=== PATIENT | female | born 1965 | race Caucasian/White ===

== ENCOUNTER 2019-04-12 01:25 | Day surgery (SDC) | payer OTHER, SELFPAY ==
--- NOTE | 2019-04-10 15:01 | WPDANESEPP ---
Anes - Eval Pre Procedure Procedure: Operation Date: 04/12/19 09:30 Proposed Procedures p Esophagogastroduodenoscopy & Colonoscopy - David Duran MD Date/Time: 04/10/19 15:01 Pre Op Diagnosis: Iron Deficiency Anemia Patient Data Age: 54 Gender: F Height: Weight: Allergies Allergy/AdvReac Type Severity Reaction Status Date / Time No Known Allergies Allergy Verified 04/07/19 14:01 Home Medications Medication Instructions Recorded Confirmed Type ywhtxptmrbtc-qbd-colq-FA-vit K 1 tablet PO DAILY 04/07/19 04/07/19 History [Adults Multivitamin] Patient hx anesthesia problems: none Family hx anesthesia problems: none PMFSH Past Medical History Medical History (Updated 04/10/19 @ 15:12 by Kylie Oneill CRNA) Anemia 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 Postmenopausal Surgical History Surgical History (Updated 04/10/19 @ 15:12 by Kylie Oneill CRNA) History of gastric bypass Hx of abdominoplasty Hx of cosmetic surgery 2019: medial thigh lift, lower body lift, midback skin excision 2018: brachioplasty, abdominoplasty, suction lipectomy mons Family History Family History (Updated 08/21/17 @ 08:43 by DOCTOR UNKNOWN) Mother Family history of diabetes mellitus in first degree relative Family history of malignant neoplasm of breast in first degree relative Diabetes mellitus Hypertension Social History Social History (Updated 04/10/19 @ 15:00 by Kylie Oneill CRNA) Smoking status: Former smoker Second hand tobacco smoke exposure: No Smoking end date: 03/03/15 Additional smoking assessment comments: positive cotinine screen 2019 Alcohol intake: never Exam Day of Procedure 04/10/19 15:01
[2019-04-12 08:17] VITALS: BP 96/69; PULSE 63; RESP 16; TEMP 36.7; O2SAT 100
[2019-04-12] MEDS: LACTATED RINGERS 1,000 ML 150 ML IV CONT (08:20)
--- NOTE | 2019-04-12 09:16 | P.CONGI_ITS ---
Assessment and Plan Additional Plan This is a 54-year-old white female patient seen in the evaluation at the request of NASIMA Smith. Patient is referred for evaluation of iron deficiency anemia. She denies any obvious blood loss. She denies abdominal pain. Her bowel habits are normal. Past medical history is significant for gastric bypass in the year 1999. She has required iron supplementation since that time. Additionally she has a history of heavy menses and had uterine ablation in the year 2007. In the past she has required IV vented for iron replacement. She has no stated drug allergies. Medications include only vitamin supplements and iron. Past medical history is significant for obesity, weight loss after gastric bypass. Chronic iron deficiency anemia subsequently. Review of systems she complains of tail bone, coccyx pain. Physical exam reveals her to be alert. Vital signs stable. HEENT exam unr emarkable. Lungs are clear to auscultation and percussion. Heart is without murmur or extra sounds. Abdominal exam bowel sounds are present soft nontender with no organomegaly. Digital external rectal exam normal. Impression 1. Iron deficiency anemia. Plan is for GI endoscopy to exclude GI etiology contributing to this. Most likely related iron malabsorption after previous gastric bypass. 2. History of gastric bypass. Likely contributes to iron malabsorption. Iron intravenous iron may be required. Plan is to proceed with GI endoscopy. Both for screening purposes and to evaluate iron loss. 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 Postmenopausal Surgical History Surgical History (Updated 04/10/19 @ 15:12 by Kylie Oneill CRNA) History of gastric bypass Hx of abdominoplasty Hx of cosmetic surgery 2019: medial thigh lift, lower body lift, midback skin excision 2018: brachioplasty, abdominoplasty, suction lipectomy mons Family History Family History (Updated 08/21/17 @ 08:43 by DOCTOR UNKNOWN) Mother Family history of diabetes mellitus in first degree relative Family history of malignant neoplasm of breast in first degree relative Diabetes mellitus Hypertension Social History Social History (Updated 04/10/19 @ 15:00 by Kylie Oneill, MANUSCRIPTS CURATOR) Smoking status: Former smoker Second hand tobacco smoke exposure: No Smoking end date: 03/03/15 Additional smoking assessment comments: positive cotinine screen 2018 Alcohol intake: never Meds Home Medications and Allergies Home Medications Medication Instructions Recorded Confirmed Type phatewdwkkiy-uit-hdox-FA-vit K 1 tablet PO DAILY 04/07/19 04/07/19 History [Adults Multivitamin] Allergies Allergy/AdvReac Type Severity Reaction Status Date / Time No Known Allergies Allergy Verified 04/07/19 14:01 Vital Signs Vital Signs - 24 hr 04/12/19 08:17 Temperature 36.7 C Pulse Rate 63 Respiratory Rate 16 Blood Pressure 96/69 L Pulse Oximetry 100
--- NOTE | 2019-04-12 09:28 | WPDANESEFPP ---
Anes - Eval Final PreProcedure Day of Procedure 04/12/19 09:28 Patient weight: overweight Heart: regular rate and rhythm Lungs: clear to auscultation Airway: Mallampati scale class II Neurological: alert and oriented Last oral intake: >/= 8 hours ASA classification: II Emergent: no Anesthetic plan: proceed Anesthesia type and monitoring: general GIVS and standard monitoring Informed Consent: The patient's anesthetic plan and its attendant risks and benefits were discussed with the patient/family/POA. Questions were solicited and answers provided to the satisfaction of the patient/family/POA.
[2019-04-12] MEDS: BENZOCAINE (*SP) 60 ML SPRAY CAN (HURRICAINE) 1 SPRAY MUCOUS MEM (09:49)
[2019-04-12 10:12] VITALS: BP 85/50; PULSE 65; RESP 16; O2SAT 98
[2019-04-12 10:22] VITALS: BP 85/50; PULSE 60; RESP 15; O2SAT 100
[2019-04-12 10:32] VITALS: BP 100/63; PULSE 62; RESP 18; O2SAT 100
== END 2019-04-12 10:52 | disposition home or self-care (01) ==
PROVIDERS: PCP Physician Assistant; Visit Provider Internal Medicine Gastroenterology
PROC: 0DJ08ZZ Inspection of Upper Intestinal Tract, Via Natural or Artificial Opening Endoscopic (ICD-10-PCS; CPT 43235; principal; 2019-04-12 09:30)
DX: D50.9 Iron deficiency anemia, unspecified (principal); Z12.11 Encounter for screening for malignant neoplasm of colon; K64.8 Other hemorrhoids; Z98.84 Bariatric surgery status; Z87.891 Personal history of nicotine dependence
CPT/HCPCS: 45378; 43235; J2704; J7120

== ENCOUNTER → 2019-05-06 13:06 | Outpatient (CLI) | payer OTHER, SELFPAY ==
--- NOTE | ~2019-05-06 | MM_ITS ---
EXAMINATION: MM screening zuleima BI w yarely HISTORY: Screening mammogram TECHNIQUE: Craniocaudal and mediolateral oblique 3-D tomosynthesis images were obtained and synthetic 2-D images were generated. CAD analysis was submitted and interpreted. COMPARISON: No prior mammogram is available for comparison at this institution. BREAST PARENCHYMAL COMPOSITION: There are scattered areas of fibroglandular density. FINDINGS: There are benign bilateral axillary and intramammary lymph nodes. There is no evidence of s uspicious mass, calcification, or architectural distortion to suggest malignancy in either breast. Th ere has been no suspicious interval change. IMPRESSION: 1. No mammographic evidence of malignancy. 2. Recommend routine screening mammography in one year. BI-RADS Category 1: Negative Reviewed, dictated and finalized at location A. HEALTH AIDE
--- NOTE | ~2019-05-06 | DEXA_ITS ---
Bone Density Report Name: Rena Kirk Age: 54 Sex: Female Ethnicity: White Date of : 1965 Indication: postmenopausal; screening for osteoporosis; height loss; Referring Provider: Alicia Mandujano Study: Bone densitometry was performed. Exam Date: May 06, 2019 Accession number: [id number] Bone Density: Region BMD T-score Z-score Classification AP Spine (L1-L4) 1.015 -0.3 0.7 Normal Femoral Neck (Left) 0.726 -1.1 -0.1 Osteopenia Total Hip (Left) 0.858 -0.7 0.0 Normal Femoral Neck (Right) 0.696 -1.4 -0.4 Osteopenia Total Hip (Right) 0.798 -1.2 -0.5 Osteopenia Total Hip Mean 0.828 -1.0 -0.3 Normal World Health Organization criteria for BMD impression classify patients as: Normal (T-score at or above -1.0), Osteopenia (T-score between -1.0 and -2.5), or Osteoporosis (T-score at or below -2.5). 10-year Fracture Risk(1): Major Osteoporotic Fracture 6.2% Hip Fracture 0.4% Reported Risk Factors: [place] (), Neck BMD=0.696, BMI=24.7 (1) FRAX(R) Version 3.08. Fracture probability calculated for an untreated patient. Fracture probability may be lower if the patient has received treatment. Clinical Information Provided by Patient: Patient maximum height was 66 Menopause Age: 53 Onset of menses at age 12 Number of children 4 Impression: The patient has low bone mass, based on the Right Femoral Neck T-score. The patient has an estimated ten-year risk of hip fracture of 0.4% and an estimated ten-year risk of major fracture of 6.2%, based on the WHO FRAX algorithm. Discussion: BONE DENSITY IS LOW AT ONE OR MORE SKELETAL SITES. This patient's lowest T-score is low at one or more skeletal sites. It meets the World Health Organization's (WHO) criteria for ?low bone mass? (T-score between -1.0 and -2.5). The patient's 10-year risk of fracture as calculated by FRAX is less than the threshold where pharmacological therapy is recommended by the National Osteoporosis Foundation (NOF). However, all treatment decisions require clinical judgment and consideration of individual patient factors, including patient preferences, comorbidities, previous drug use, risk factors not captured in the FRAX model (e.g., frailty, falls, vitamin D deficiency, increased bone turnover, interval significant decline in bone density) and possible under or overestimation of fracture risk by FRAX. The patient should follow a healthful lifestyle (good nutrition with adequate calcium and vitamin D, and appropriate weight-bearing exercise). Follow-Up: Consider repeating this study in 2 to 3 years to reassess this patient's status, or sooner if there is some new clinical indication. Reported by: DEBI on 05/06/2019 1:52:00 PM. Reviewed, dictated and finalized at lo
== END ==
PROVIDERS: PCP Physician Assistant; Visit Provider Student in an Organized Health Care Education/Training Program
DX: Z12.31 Encounter for screening mammogram for malignant neoplasm of breast (principal); Z78.0 Asymptomatic menopausal state; M85.852 Other specified disorders of bone density and structure, left thigh; M85.851 Other specified disorders of bone density and structure, right thigh
CPT/HCPCS: 77063; 77067; 77080

== ENCOUNTER → 2020-08-04 09:43 | Outpatient (CLI) | payer OTHER, SELFPAY ==
--- NOTE | ~2020-08-04 | CT_ITS ---
EXAMINATION: CT abdomen pelvis w con DATE: 08/04/2020 10:04 INDICATION: Right-sided abdominal pain. TECHNIQUE: Computed tomography (CT) of the abdomen and pelvis was performed with 100 mL Omnipaque-350 intravenous contrast. Automated exposure control and iterative reconstruction technique were employe d. The dose-length product was 799.53 mGy-cm. COMPARISON: None FINDINGS: Lung bases are clear. Heart size is normal. No pericardial or pleural effusion. Postoperative change of prior Travis-en-Y gastric bypass procedure. Multiple small gallstones in the normal-appearing gallbl adder with 2 mm stone in the cystic duct. Normal caliber common bile duct with no intra or extrahepat ic biliary ductal dilation. Liver, spleen, pancreas, bilateral adrenal glands and kidneys are normal. No bowel obstruction or abnormal bowel wall thickening. Appendix is normal. Bladder, uterus and bila teral adnexa are unremarkable. No free intraperitoneal gas or fluid. No pathologically enlarged abdom inal or pelvic lymphadenopathy. A few small fat-containing midline supraumbilical ventral hernias. Mi ld lumbar levocurvature with moderate spondylosis. IMPRESSION: 1. Cholelithiasis with 2 mm stone in the cystic duct but with normal-appearing gallbladder. 2. A few small fat-containing midline supraumbilical ventral hernias. Reviewed, dictated and finalized at location A.
== END ==
PROVIDERS: Visit Provider Physician Assistant
DX: R10.9 Unspecified abdominal pain (principal); K43.9 Ventral hernia without obstruction or gangrene; K80.20 Calculus of gallbladder without cholecystitis without obstruction
CPT/HCPCS: 74177; Q9967

== ENCOUNTER 2023-08-08 08:39 | Outpatient (CLI) | payer OTHER, SELFPAY ==
--- NOTE | ~2023-08-08 | CT_ITS ---
CT of the Abdomen and Pelvis: Indication: Abdominal pain Technique: 2.5 mm axial scans were obtained through the abdomen and pelvis following intravenous adm inistration of 100 cc of Omnipaque 350. Dose reduction technique was used on this scan by utilizing a utomated exposure control and iterative reconstruction technique. The dose-length product (DLP) was 1 029.41 mGy-cm. COMPARISON: 08/04/2020 Findings: Scans through the lung bases are unremarkable. The liver, spleen, pancreas, adrenals and kidneys are within normal limits. Gallbladder absent. No ev idence of aortic aneurysm. No lymphadenopathy. Ventral hernia containing small fat and one wall of a focal segment of the transverse colon. No bowel obstruction or bowel wall thickening seen. Images through the pelvis were performed. Urinary bladder unremarkable. No pelvic mass seen. No ascit es. Impression: No acute abnormality evident. Delacruz's type ventral hernia containing one wall of focal segment of the transverse colon. No bowel obstruction or bowel wall thickening. Reviewed, dictated and finalized at [facility]. Impression: No acute abnormality evident. Delacruz's type ventral hernia containing one wall of focal segment of the trans verse colon. No bowel obstruction or bowel wall thickening.
[2023-08-08 09:06] LABS: Estimated Glomerular Filt Rate > 60
== END 2023-08-08 08:40 ==
LOC: MICIMG 08:40
PROVIDERS: PCP Physician Assistant; Visit Provider Physician Assistant
DX: R10.31 Right lower quadrant pain (principal); K43.9 Ventral hernia without obstruction or gangrene
CPT/HCPCS: 74177; Q9967

== ENCOUNTER 2023-11-17 12:33 | Outpatient (CLI) | payer OTHER, SELFPAY ==
--- NOTE | ~2023-11-17 | MM_ITS ---
EXAMINATION: MM screening zuleima BI w yarely HISTORY: Screening mammogram, family history of breast cancer in her mother. TECHNIQUE: Craniocaudal and mediolateral oblique 3-D tomosynthesis images were obtained and synthetic 2-D images were generated. CAD analysis was submitted and interpreted. COMPARISON: 05/06/2019 BREAST PARENCHYMAL COMPOSITION:Not Dense. The breasts are almost entirely fatty FINDINGS: No suspicious mass, calcification, or architectural distortion are identified in either kody ast to suggest malignancy. There has been no suspicious interval change. IMPRESSION: No mammographic evidence of malignancy. Recommend routine screening mammography in one year. BI-RADS Category 1: Negative Reviewed, dictated and finalized at location .
== END 2023-11-17 12:34 | disposition home or self-care (01) ==
PROVIDERS: PCP Physician Assistant; Visit Provider Physician Assistant
DX: Z12.31 Encounter for screening mammogram for malignant neoplasm of breast (principal)
CPT/HCPCS: 77063; 77067

== ENCOUNTER 2024-01-12 12:28 | Outpatient (CLI) | payer OTHER, SELFPAY ==
--- NOTE | ~2024-01-12 | XR_ITS ---
XR chest 2V Ordering provider: Jason Matthews MD History: 59 years Female with . K43.0 - Incisional hernia with obstruction, without gangrene . Comparison: None. FINDINGS: MEDIASTINUM: The cardiac silhouette is not enlarged. LUNGS: No infiltrates, effusions or pneumothorax. OTHER: No free air under the diaphragm. IMPRESSION: No acute cardiopulmonary pathology. Reviewed, dictated and finalized at location A. MICS SCIENTIST
--- NOTE | 2024-01-12 12:33 | ECG_ITS ---
Test Date: 2024-01-12 12:47:49 Measurements Intervals [place] Rate: 62 P: 57 KS: 174 QRS: 19 QRSD: 93 T: 37 QT: 432 QTc: 439 Interpretive Statements SINUS RHYTHM WITH SINUS ARRHYTHMIA LOW QRS VOLTAGE IN PRECORDIAL LEADS BASELINE ARTIFACT- I, II, III BORDERLINE ECG No previous ECG available for comparison Electronically Signed On 01-12-2024 13:10:59 COPRA PROCESSOR by Jim Valdes D.O.
[2024-01-12 12:59] LABS: Basophils Percent Auto 0.5 % (0.2-1.2); Eosinophils Absolute Auto 0.2 K/mm3 (0-0.3); Eosinophils Percent Auto 2.7 % (0-4.4); Hematocrit 41.8 % (37.0-47.0); Hemoglobin 14.4 g/dL (12.0-15.0); Immature Granulocyte Absolute 0.02 K/mm3 (0.00-0.031); Immature Granulocyte Percent A 0.3 % (0-0.5); Lymphocytes Absolute Auto 2.58 K/mm3 (0.9-3.2); Lymphocytes Percent Auto 34.9 % (18.3-44.2); Mean Corpuscular HGB Conc 34.4 g/dl (32-36); Mean Corpuscular Hemoglobin 33.3 pg (26-34); Mean Corpuscular Volume 96.5 fl (80-100); Mean Platelet Volume 9.4 fl (7.4-10.4); Monocytes Absolute Auto 0.7 K/mm3 (0.1-0.6); Monocytes Percent Auto 9.1 % (2.6-8.5); Neutrophils Absolute Auto 3.9 K/mm3 (1.3-6.7); Neutrophils Percent Auto 52.5 % (45.5-73.1); Platelet Count Result 229 k/mm3 (150-375); Red Blood Count 4.33 M/mm3 (4.2-5.4); Red Cell Distribution Width 12.4 % (11.5-14.5); White Blood Count 7.4 K/mm3 (4.5-10.0)
[2024-01-12 13:31] LABS: Anion Gap 6 mmol/L (4-12); Blood Urea Nitrogen 8 mg/dL (7-17); Calcium 9.1 mg/dL (8.4-10.2); Carbon Dioxide 25 mmol/L (22-30); Chloride 108 mmol/L (98-107); Estimated Glomerular Filt Rate > 60; Glucose 66 mg/dL (65-110); Potassium 3.9 mmol/L (3.4-5.0); Sodium 139 mmol/L (137-145)
== END 2024-01-12 12:29 | disposition home or self-care (01) ==
PROVIDERS: PCP Physician Assistant; Visit Provider Surgery
DX: K43.0 Incisional hernia with obstruction, without gangrene (principal)
CPT/HCPCS: 36415; 71046; 80048; 85025; 86850; 86900; 86901; 93005

== ENCOUNTER 2024-01-14 15:02 | Inpatient (IN) | payer OTHER, SELFPAY ==
[2024-01-08 08:56] VITALS: BMI 36.3
--- NOTE | 2024-01-08 09:03 | PC.NURSE ---
Addendum entered by Terence Berry RN 01/08/24 14:16: Proceedure time 0900. Original Note: Report to the Outpatient Waiting Room, entrance under the green pavilion located off [address], at time _0700_ on date _[id number]_. Planned Procedure Time: __.? Time changes happen often and if your time is changed the preop area will call you the afternoon before. - You and your visitor will be asked to self-screen and do not enter if you have any COVID symptoms. Please call surgeon if you need to reschedule. - A mask is optional within the hospital at this time. Patients may have clear liquids (water, carbonated beverages, clear teas, apple juice) until 3 hours prior to surgery with a maximum of 20 ounces. - No food from midnight until time of surgery and no smoking Take only the following medications with a SIP of water on the morning of surgery: ___None DO NOT STOP ANY OF YOUR OTHER PRESCRIPTION MEDICATIONS PRIOR TO SURGERY EXCEPT THE FOLLOWING Medications to discontinue per physician ____Multivitamin___ Date to take last ffus__[id number]____ Please no make-up, nail macedonian, hairspray, perfume, deodorant, or body powder the day of surgery.? No jewelry (including any body piercings) or valuables the day of surgery, leave them at home.? Please take a shower or bath the night before, or the morning of, surgery with an antibacterial soap.? Wear comfortable, loose fitting clothing.? - Jewelry must be removed prior to entering the operating room.? Rings and piercings that are not removed may be cut off. - The hospital will not accept responsibility for valuables.? - Please leave all valuables, including medications, at home the day of surgery. If you are going home after surgery, a licensed national van truck driver must drive you home.? - NO public transportation without another adult if you receive anesthesia. - We recommend that an adult stay with you for 24 hours following discharge. - We also recommend that you do not drive, make important decision, drink alcoholic beverages, or take any drugs that were not prescribed by your health care provider for at least 24 hours after your discharge time. Follow any additional instructions given to you from your surgeon. Telephone instructions given to __Staceya__and asked if any additional questions and then verbalized understanding. Patient advised to call surgeon office or pre surgery nurse liaison [phone] if any additional questions.
--- NOTE | 2024-01-12 14:31 | PM.IMHP ---
H&P: HPI History of Present Illness Date/Time: 01/12/24 14:31 Chief Complaint: Multiple hernias Narrative: Patient is a 59-year-old woman who had noticed right lower quadrant pain as well as multiple bulges in the midline of her abdomen. She has a history of open gastric bypass. She also has a history of abdominoplasty. She noticed these bulges starting about 2 years ago. Sometimes they are painful and will not reduce. In the office, there were areas that were not reducible but not tender. She underwent a CT scan of the abdomen and pelvis that shows what appears to be a midline incisional hernia repair with an umbilical recurrence as well as supraumbilical incisional hernias. One of the upper abdominal hernias does contain a bit of transverse colon. After discussion, she is taken to surgery now for open repair multiple incisional recurrent incarcerated hernias with mesh, posterior component separation. 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 Postmenopausal Vaginal delivery x4 Surgical History Surgical History (Updated 01/12/24 @ 14:50 by Jason Matthews MD) History of bilateral tubal ligation History of endometrial ablation History of gastric bypass Hx laparoscopic cholecystectomy Hx of abdominoplasty Hx of cosmetic surgery 2019: medial thigh lift, lower body lift, midback skin excision 2018: brachioplasty, abdominoplasty, suction lipectomy mons Family History Family History Mother Family history of diabetes mellitus in first degree relative Family history of malignant neoplasm of breast in first degree relative Diabetes mellitus Hypertension Father , age 75 Malignant neoplasm of prostate Hypertension Social History Social History (Updated 09/29/23 @ 08:51 by Jeannie Rasmussen [facility]) Smoking packs per day: 1 Smoking cigarettes per day: 20.0 Years smoked: 12 Smoking pack-years: 12.00 Smoking status: Former smoker Tobacco type: cigarettes and e-cigarettes/vaping Second hand tobacco smoke exposure: No Smoking end date: 01/07/18 Additional smoking assessment comments: No longer vaping. Alcohol intake: never Do You Feel Safe in your Home?: Yes Lack of Transportation: No Lack of Food: Never True Current Housing: I Have Housing Concerned About Future Housing: No Difficulty Paying Gas/Electric Bills: No Difficulty Paying for Meds: No Currently Unemployed: No Education: Bachelor's Degree Difficulty w/ Childcare or Family Care: No Living arrangements: with family Occupation/Education: occupation Additional occupation/education comments: [employer] Spiritual care concerns: No Meds Home Medications and Allergies Home Medications Medication Instructions Recorded Confirmed Type multivit with minerals-iron 18 1 tablet PO DAILY 04/07/19 01/08/24 History mg-folic ac 400 mcg-vit K 25 mcg tablet (Adults Multivitamin) Allergies Allergy/AdvReac Type Severity Reaction Status Date / Time No Known Allergies Allergy Verified 01/08/24 08:55 Exam Const: General: comfortable, no acute distress, alert and awake HENMT: Head: normocephalic and atraumatic Mouth: Yes Normal oral and palatal mucosa present Eyes: Conjunctivae: conjunctivae normal Pupils: Equal, round and reactive pupils present EOM: EOMs intact bilaterally Neck: Neck: normal visual inspection, no lymphadenopathy and nontender Resp: Effort & Inspection: normal respiratory effort Auscultation: clear to auscultation bilaterally Cardio: Rate: regular rate Rhythm: regular rhythm Heart sounds: no gallops, no murmurs and no rubs GI: Inspection: non-distended, scar (Midline abdominal scar, long suprapubic transverse scar) and visible herniation GI Palp: Yes Soft to palpation, Yes Tenderness to palpation present (GI), No Guarding due to palpation present (GI), No Hepatomegaly present, No Splenomegaly present, Yes Hernia present incisional (Multiple midline bulge is, some reducible, some are not) > 10 cm (23 cm length estimated by CT scan) and No Rebound tenderness present Auscultation: normal bowel sounds Skin: Lesions: no lesions Rashes: no rashes Neuro: General: no focal motor deficits and CN's II-XI intact bilaterally Cranial nerves: Yes Equal, round and reactive pupils present, Yes Bilaterally intact EOM present, Yes facial symmetry and Yes Midline tongue present Speech: normal speech Motor exam (neuro): 5/5 motor strength present throughout and Motor abnormalities not present Extrem: General: no clubbing, cyanosis or edema and edema Psych: Affect: normal affect Thought process: Normal thought process present Insight: Good insight present (Psych) Assessment and Plan Assessment and plan (1) Recurrent incisional hernia with incarceration: Code(s): K43.0 - Incisional hernia with obstruction, without gangrene Status: Chronic Assessment and Plan: Patient with long midline scar and several hernias noted. There are several bulges in the midline or just off the midline. By CT scan she has evidence of a previous umbilical hernia repair with recurrence. Above the previous repair there are 2 recurrent hernias, 1 is a Delacruz hernia containing some of the transverse colon. Some of these hernias will not reduce. She has had a previous abdominal plasty including a diastasis repair. By CT scan she has a length of 23 cm of hernia. She is taken to surgery at this time for open repair with mesh, bilateral posterior component separation. She may have mesh in the abdominal wall at this time, some of this may be removed, possibly all of this may be removed. The procedure was discussed with her in detail. The benefits, alternatives, potential complications, use of mesh, and usual recovery have been discussed. All questions were answered. She understands and agrees to go ahead. (2) Former smoker: Code(s): Z87.891 - Personal history of nicotine dependence Status: Chronic Assessment and Plan: Quit in 2015 (3) History of gastric bypass: Code(s): Z98.84 - Bariatric surgery status Status: Chronic (4) Hx of abdominoplasty: Code(s): Z98.890 - Other specified postprocedural states Status: Chronic Assessment and Plan: 2017
[2024-01-14] VITALS (21 sets, daily range): BP systolic 113–138; BP diastolic 59–92; PULSE 56–104; RESP 13–21; TEMP 35.7–37.1; O2SAT 92–99
--- NOTE | ~2024-01-14 | XR_ITS ---
EXAMINATION: XR chest 2V DATE: 01/15/2024 09:57 INDICATION: Shortness of breath. TECHNIQUE: Frontal and lateral views of the chest were obtained. COMPARISON: Chest 2 views 01/12/2024, CT abdomen and pelvis 08/08/2023 FINDINGS: There is elevation of right hemidiaphragm. There is mild atelectasis in the lower lung zone s. No pleural effusion or pneumothorax. The heart size is normal. Abdominal skin vickey are noted. A surgical drain overlies the abdomen. IMPRESSION: 1. Mild atelectasis in the lower lung zones with worsened elevation of right hemidiaphragm. Reviewed, dictated and finalized at location A. NSED FUNERAL DIRECTOR AND EMBALMER IMPRESSION: 1. Mild atelectasis in the lower lung zones with worsened elevation of right he midiaphragm.
[2024-01-14] MEDS: LACTATED RINGERS 1,000 ML 30 ML IV CONT ×2 (08:00→12:30)
--- NOTE | 2024-01-14 08:29 | WPDHPUPDATE1 ---
History and Physical Update Update Date/Time: 01/14/24 08:29 History and Physical has been reviewed, including an updated exam of the patient. There are NO changes in the patient's condition. Risks, benefits, and alternatives have been discussed and questions answered. Patient agrees to proceed with procedure.
[2024-01-14] MEDS: ACETAMINOPHEN 500 MG TABLET 1000 MG PO (08:45)
[2024-01-14] MEDS: KETOROLAC 15 MG/ML VIAL (*BKC) IV PUSH (08:45)
[2024-01-14] MEDS: ceFAZolin 2 GM/D5W 50 ML 2 GM/50 ML BAG IVPB (09:00)
--- NOTE | 2024-01-14 10:00 | WPDANESEPPF ---
Anes - Initial Pre Proc Eval Procedure: Operation Date: 01/14/24 09:00 Proposed Procedures p Incarcerated Recurrent Incisional Hernia Repair with Mesh, Posterior Component Separation - Jason Matthews MD Date/Time: 01/14/24 10:00 Surgeon: Jason Matthews MD Pre Op Diagnosis: incarcerated recurrent incisional hernia Patient Data Age: 59 Gender: F Height: 1.6 m Weight: 96 kg Last Vital Signs Temp 36.7 C 01/14/24 08:00 Pulse 56 L 01/14/24 08:00 Resp 18 01/14/24 08:00 BP 119/77 01/14/24 08:00 Pulse Ox 98 01/14/24 08:00 O2 Del Method Room Air 01/14/24 08:00 Allergies Allergy/AdvReac Type Severity Reaction Status Date / Time No Known Allergies Allergy Verified 01/14/24 08:40 Home Medications Medication Instructions Recorded Confirmed Type multivit with minerals-iron 18 1 tablet PO DAILY 04/07/19 01/14/24 History mg-folic ac 400 mcg-vit K 25 mcg tablet (Adults Multivitamin) Patient hx anesthesia problems: none Family hx anesthesia problems: none Results Review: All pre-operative results and documents have been reviewed as part of the pre-operative evaluation. 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 Postmenopausal Vaginal delivery x4 Surgical History Surgical History (Updated 01/12/24 @ 14:50 by Jason Matthews MD) History of bilateral tubal ligation History of endometrial ablation History of gastric bypass Hx laparoscopic cholecystectomy Hx of abdominoplasty Hx of cosmetic surgery 2019: medial thigh lift, lower body lift, midback skin excision 2018: brachioplasty, abdominoplasty, suction lipectomy mons Family History Family History Mother Family history of diabetes mellitus in first degree relative Family history of malignant neoplasm of breast in first degree relative Diabetes mellitus Hypertension Father , age 75 Malignant neoplasm of prostate Hypertension Social History Social History Smoking packs per day: 1 Smoking cigarettes per day: 20.0 Years smoked: 12 Smoking pack-years: 12.00 Smoking status: Former smoker Tobacco type: cigarettes and e-cigarettes/vaping Second hand tobacco smoke exposure: No Smoking end date: 01/07/18 Additional smoking assessment comments: No longer vaping. 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 Informed Consent: The patient's anesthetic plan and its attendant risks and benefits were discussed with the patient/family/POA. Questions were solicited and answers provided to the satisfaction of the patient/family/POA.
--- NOTE | 2024-01-14 12:45 | W.PM.PROC2 ---
Procedure Note - Detailed Date of Procedure 01/14/24 Pre-op Diagnosis incarcerated recurrent incisional hernia Post-op Diagnosis Same Procedure Performed Repair incarcerated recurrent incisional hernias with 23 cm abdominal defect using mesh; bilateral transversus abdominis myofascial flap advancement-6 cm on the left, 4 cm on the right. 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 She had an abdominoplasty with mohit de lis incision and repair of diastasis, then subsequently suction lipectomy. She presented with longstanding history of multiple painful lumps along her midline abdominal scar. By exam in the office as well as CT scan of the abdomen and pelvis she has multiple recurrent incisional hernias, some of which are incarcerated. The overall defect measured 23 cm in length by CT scan. Some of the transverse colon was chronically incarcerated in 1 of the upper abdominal hernias with a Delacruz hernia occurring there. After discussion, she is taken to surgery now for open repair incarcerated recurrent incisional hernias with mesh as well as myofascial flap advancement. Findings There were multiple hernias at least 4 5 in the midline abdominal wall. The midline rectus fascia was not able to be found in about half of the abdominal incision, likely due to the diastasis repair. The abdomen had also lost some of its elasticity due to the previous multiple surgeries. Beside the incisional hernia repair, bilateral transversus abdominis myofascial flap advancement was needed to close the abdomen under minimal tension and provide an adequate repair. Description of Procedure The patient was taken to surgery and induced into general anesthesia. The abdomen was prepped and draped. Initial incision was made in the midline over the previous midline scar which had healed well. We opened the abdomen over most of its anterior scar although not all of it. We then dissected through the subcutaneous and ran into several hernias. Two were in the upper abdomen, another 2 were at and just above the umbilicus. Once we had the abdomen opened in the midline, I took down primarily omental adhesions to the anterior abdominal wall although the proximal transverse colon was noted to be partially incarcerated in an adhesion in the upper abdomen. There was no evidence of obstruction, this was a Delacruz's hernia. There was no evidence of bowel compromise either. Once the anterior abdominal wall adhesions had been taken down and hemostasis achieved, I still had to take liver adhesions to the anterior abdominal wall in the epigastric area the abdomen. I then placed a blue towel in the abdomen covering all of the viscera to partition it from the abdominal wall components. I then performed a posterior rectus fascia dissection bilaterally dividing the posterior rectus fascia the length of the abdominal incision and carefully dissecting the rectus muscle off of the fascia to the lateral most extent of the rectus muscle. Cautery was used for hemostasis. Care was taken not to injure the neurovascular bundles at the lateral edge of the rectus muscle. Once this had been completed bilaterally, it was clear that there would be significant tension if bilateral transversus abdominis flap advancement was not performed. I then started on the patient's left side in the upper quadrant. The transversus muscle was easily seen here. Just below the costal margin, I started elevating the transversus fibers on a clamp and dividing them with the cautery. We continued this dissection down to the transversus fascia and peritoneum. The starting cephalad, I then slowly continued this dissection staying just medial to the neurovascular bundles coming through the lateral aspect of the posterior rectus fascia to enter of a the 2 rectus muscles. While dissecting from this cephalad to caudad, I also bluntly advanced the dissection plane just over the transversus fascia beyond the axillary line to the most posterior extent. These dissections were carried on concomitantly as we proceeded from cephalad to caudad. No holes in the transversus fascia were created. When we went pass the semicircular line, the dissection became more easy. We continued this dissection proceeding to the retro pubic space. Cephalad we continued the dissection and created a space just behind the xiphoid process and distal sternum. At this point, I changed to the patient's left side and exposed in similar fashion the cephalad transversus muscle fibers. In a mirror image approach, I a perform the same dissection from cephalad to caudad and created a space just above the transversus fascia extending all the way posterior as far as possible. This space was continued under the sternum and xiphoid process so that it communicated with the patient's left side. Similarly, the dissection continued caudally so that the dissection plane was the same and continued communicating with the left side in the retropubic space. At this point we had ample space for mesh placement. Hemostasis was adequate. I used bidirectional 2-0 Vicryl and closed the transversus sac in the midline suturing the posterior rectus fascia to itself. I then brought an extra-large soft polypropylene mesh into the field. It was placed in ting fashion such that the cephalad extent went beyond the xiphoid and under the distal sternum. The caudad extent overlapped with the retropubic dissection. Both full right and left lateral sides lay flat and extended the length of the transversus dissection on each side. The mesh lay in good position and was well held in place by the abdominal wall structures. A 19 Lev drain was then brought out the left lower quadrant. It was sutured to the skin with 2-0 silk. The drain was placed in the retro rectus position, just over the mesh. We then closed the midline with bidirectional running 1. PDS suture. The subcu was closed with interrupted 3-0 Vicryl suture. The skin was loosely approximated with subcuticular interrupted 4-0 Vicryl suture. The skin was finally closed with wide vickey. Wound was dressed with Xeroform gauze, fluffs and Medipore tape. The drain was placed to bulb suction. Patient was awakened and extubated. She was taken to recovery in good condition. Sponge and needle counts were correct x2. Implants Extra-large polypropylene abdominal wall soft mesh Estimated Blood Loss -150 Drains Yes (Nineteen Lev drain retro rectus coming out the left lower quadrant) Packing No Pathology None sent Complications None Condition Stable Disposition PACU [facility] Billing Surgery - Charge Forward: Surgery Billing (Repair incarcerated recurrent incisional hernias with 23 cm defect using mesh. Bilateral transversus abdominis myofascial flap advancement, 6 cm on the left, 4 cm on the right.)
--- NOTE | 2024-01-14 13:23 | SUR.PHASEI ---
patient complained of a hard time catching her breath o2 is 97 on 2L, had some complaints of chest pressure. Discussed type of surgery with MD Matthews, he is aware, stated patient surgery took place from sternum to pelvis. Patient repositioned and now has decreased chest discomfort.
--- NOTE | 2024-01-14 15:14 | PC.NURSE ---
RN assumed care
--- NOTE | 2024-01-14 16:12 | PC.NURSE ---
This patient, Rena Kirk, was received from [facility] on 01/14/24 at 1509. Patient/family oriented to unit policies and routines
--- NOTE | 2024-01-14 16:38 | PC.NURSE ---
RN called the exchange because pt is complaining of chest pain. [phone]
--- NOTE | 2024-01-14 16:49 | ECG_ITS ---
Test Date: 2024-01-14 19:36:46 Measurements Intervals [place] Rate: 94 P: 38 AR: 168 QRS: 29 QRSD: 89 T: 29 QT: 361 QTc: 454 Interpretive Statements SINUS RHYTHM BASELINE WANDER- V6 NORMAL ECG Compared to ECG 01/12/2024 12:47:49 Sinus arrhythmia no longer present Electronically Signed On 01-15-2024 05:35:41 SERVICE CREW LEADER by Jim Valdes D.O.
[2024-01-14] MEDS: IBUPROFEN IV 800 MG/200 ML 800 MG/200 ML BAG 400 MG IVPB ×2 (18:23→23:37)
[2024-01-14] MEDS: LACTATED RINGERS 1,000 ML 125 ML IV CONT (18:26)
[2024-01-14] MEDS: oxyCODONE/ACETAMINOPHEN (*CRX) 10-325 MG TABLET 1 TAB PO (20:05)
[2024-01-14] MEDS: FAMOTIDINE 20 MG/2 ML VIAL IV PUSH (20:40)
--- NOTE | 2024-01-14 23:42 | PC.NURSE ---
Pt complained of chest pressure, heaviness and 9/10 pain. EKG was completed at 1936 and showed normal sinus rhythm. Dr. Mondragon was called and informed that the EKG was normal sinus rhythm. Vital signs: Blood pressure: 127/84, Pulse 88, O2sat: 95 on 2L of oxygen via nasal canula. Dr. Mondragon said to give the patient pain medication. I administered pain medication and the patient said that relieved the pain in her chest and is resting comfortably.
[2024-01-15] VITALS (7 sets, daily range): BP systolic 106–119; BP diastolic 68–82; PULSE 77–100; RESP 16–18; TEMP 35.9–36.4; O2SAT 92–98
[2024-01-15] MEDS: oxyCODONE/ACETAMINOPHEN (*CRX) 10-325 MG TABLET 1 TAB PO ×3 (02:26→21:00)
[2024-01-15] MEDS: LACTATED RINGERS 1,000 ML 125 ML IV CONT ×2 (05:09→09:15)
[2024-01-15] MEDS: IBUPROFEN IV 800 MG/200 ML 800 MG/200 ML BAG 400 MG IVPB ×3 (05:13→17:37)
[2024-01-15 07:43] LABS: Hematocrit 37.8 % (37.0-47.0); Hemoglobin 12.8 g/dL (12.0-15.0); Mean Corpuscular HGB Conc 33.9 g/dl (32-36); Mean Corpuscular Hemoglobin 32.7 pg (26-34); Mean Corpuscular Volume 96.4 fl (80-100); Mean Platelet Volume 9.4 fl (7.4-10.4); Platelet Count Result 202 k/mm3 (150-375); Red Blood Count 3.92 M/mm3 (4.2-5.4); Red Cell Distribution Width 12.3 % (11.5-14.5); White Blood Count 7.7 K/mm3 (4.5-10.0)
[2024-01-15 07:54] LABS: Anion Gap 2 mmol/L (4-12); Blood Urea Nitrogen 9 mg/dL (7-17); Calcium 8.6 mg/dL (8.4-10.2); Carbon Dioxide 29 mmol/L (22-30); Chloride 104 mmol/L (98-107); Estimated CRCL calculation 95 ml/min; Estimated Glomerular Filt Rate > 60; Glucose 123 mg/dL (65-110); Sodium 135 mmol/L (137-145)
--- NOTE | 2024-01-15 08:42 | P.PNGS_ITS ---
Progress Note: A&P Assessment and Plan (1) Recurrent incisional hernia with incarceration: Code(s): K43.0 - Incisional hernia with obstruction, without gangrene Status: Chronic Assessment and Plan: Having some shortness of breath this morning. Requiring 2 L of oxygen for sats in the 90%. EKG was done early this morning and is normal. Will get chest x- ray. Up today and advance diet to full liquids. Hopefully this is just postoperative incisional pain. If so, this should improve over the next couple of days. Really no abdominal pain in the hypogastric area or further caudal. Labs look good. Overall doing well. (2) Former smoker: Code(s): Z87.891 - Personal history of nicotine dependence Status: Chronic (3) Anemia: Qualifiers: Anemia type: B12 deficiency Vitamin B12 deficiency anemia type: intrinsic factor deficiency Qualified Code(s): D51.0 - Vitamin B12 deficiency anemia due to intrinsic factor deficiency Code(s): D64.9 - Anemia, unspecified Status: Chronic Assessment and Plan: Gets iron infusions intermittently. On multivitamin Subjective Subjective Date/Time Seen: 01/15/24 08:42 Post Op day: 1 Patient reports: pain is less (Minimal pain other than the shortness of breath), no flatus, no bowel movement and shortness of breath (Having a little trouble with shortness of breath, on 2 L with sats over 90%) Review of Systems Review of Systems: All systems reviewed & are unremarkable except as noted in HPI and below (HPI) Exam Const: General: comfortable, no acute distress, alert and awake Orientation/consciousness: patient oriented x3 Resp: Effort & Inspection: not able to speak in complete sentences, abnormal respiratory pattern (Slightly labored), no cough, labored, no respiratory distress, no stridor and not tachypneic Cardio: Rate: regular rate Rhythm: regular rhythm GI: Inspection: incision (Dressing dry and intact, old blood in JACKIE drain) GI Palp: Yes Soft to palpation, Yes Tenderness to palpation present (GI), No Guarding due to palpation present (GI) and No Rebound tenderness present Neuro: General: patient oriented x3 and no focal motor deficits Extrem: General: no calf tenderness and no edema Psych: Affect: normal affect Insight: Good insight present (Psych) Judgement: Good judgement present (Psych) Objective Data Vital Signs Vital Signs: Vital Signs - 24 hr 01/14/24 12:30 01/14/24 12:45 01/14/24 13:00 Temperature 37.1 C Pulse Rate 89 88 86 Respiratory Rate 13 21 H Blood Pressure 137/86 138/83 129/59 L Pulse Oximetry 97 98 93 Oxygen Delivery Simple Face Mask Simple Face Mask Nasal Cannula Oxygen Flow Rate 8 8 2 01/14/24 13:15 01/14/24 13:30 01/14/24 13:45 Temperature Pulse Rate 76 68 68 Respiratory Rate 14 14 15 Blood Pressure 127/75 127/87 130/74 Pulse Oximetry 95 97 97 Oxygen Delivery Nasal Cannula Nasal Cannula Nasal Cannula Oxygen Flow Rate 2 2 2 01/14/24 14:00 01/14/24 14:15 01/14/24 14:30 Temperature Pulse Rate 79 87 73 Respiratory Rate 15 15 18 Blood Pressure 126/80 113/70 124/70 Pulse Oximetry 97 97 98 Oxygen Delivery Nasal Cannula Nasal Cannula Nasal Cannula Oxygen Flow Rate 2 2 2 01/14/24 14:45 01/14/24 14:58 01/14/24 16:20 Temperature 36.3 C L Pulse Rate 82 84 Respiratory Rate 15 20 Blood Pressure 131/81 134/92 H Pulse Oximetry 99 96 98 Oxygen Delivery Nasal Cannula Nasal Cannula Nasal Cannula Oxygen Flow Rate 2 2 2 01/14/24 15:02 01/14/24 15:17 01/14/24 15:47 Temperature 35.9 C L 36.1 C L 35.7 C L Pulse Rate 104 H 91 80 Respiratory Rate 18 18 18 Blood Pressure 131/70 129/78 130/74 Pulse Oximetry 98 98 98 Oxygen Delivery Oxygen Flow Rate 01/14/24 16:47 01/14/24 19:45 01/14/24 19:54 Temperature 36.0 C L 36.2 C L Pulse Rate 83 88 Respiratory Rate 18 16 Blood Pressure 130/85 117/62 Pulse Oximetry 96 99 94 Oxygen Delivery Nasal Cannula Oxygen Flow Rate 2 01/14/24 23:34 01/14/24 19:40 01/15/24 04:47 Temperature 36.4 C 36.4 C Pulse Rate 87 88 90 Respiratory Rate 16 18 Blood Pressure 117/71 127/84 114/69 Pulse Oximetry 92 95 95 Oxygen Delivery Oxygen Flow Rate Intake/Output Intake/Output: Intake & Output 01/12/24 01/13/24 01/14/24 01/15/24 23:59 23:59 23:59 23:59 Intake Total 400 1400 Output Total 270 0200 Balance 130 -270 Meds/Results Medications: Active Medications Generic Name Dose Route Start Last Admin Trade Name Freq PRN Reason Stop Dose Admin Acetaminophen 500 mg 01/14/24 15:02 Acetaminophen 500 Mg Tablet PO Q6H PRN Pain Rated 1-3 Enoxaparin Sodium 40 mg 01/15/24 09:00 Enoxaparin 40 Mg/0.4 Ml Syringe SUB-Q DAILY ESTIVEN Famotidine 20 mg 01/14/24 21:00 01/14/24 20:40 Famotidine 20 Mg/2 Ml Vial IV PUSH 20 mg Q12HR ESTIVEN Administration Lactated Ringer's 1,000 mls @ 125 mls/hr 01/14/24 15:02 01/15/24 05:09 Lr - Lactated Ringers Iv IV CONT 125 mls/hr .Q8H ESTIVEN Administration Ibuprofen 800 mg in 200 mls @ 400 mls/hr 01/14/24 18:00 01/15/24 05:13 Caldolor 800 Mg/200 Ml IVPB 400 mls/hr Q6H ESTIVEN Administration Morphine Sulfate 2 mg 01/14/24 15:02 Morphine Sulfate (*Crx) 2 Mg/Ml Inj IV PUSH Q2H PRN Breakthrough Pain Rated 4-6 or NPO Morphine Sulfate 4 mg 01/14/24 15:02 Morphine Sulfate (*Crx) 4 Mg/Ml Inj IV PUSH Q2H PRN Breakthrough Pain Rated 7-10 or NPO Naloxone HCl 0.1 mg 01/14/24 15:02 Naloxone Hcl 0.4 Mg/Ml Vial IV PUSH Q2M PRN Opiate Reversal Ondansetron HCl 4 mg 01/14/24 15:02 Ondansetron Inj 4 Mg/2 Ml Vial IV PUSH Q4H PRN Nausea And Vomiting Oxycodone/Acetaminophen 1 tablet 01/14/24 15:02 Oxycodone/Acetaminophen (*Crx) 5-325 Mg Tablet PO Q4H PRN Pain Rated 4-6 Oxycodone/Acetaminophen 1 tab 01/14/24 15:02 01/15/24 02:26 Oxycodone/Acetaminophen (*Crx) 10-325 Mg Tablet PO 1 tab Q6H PRN Administration Pain Rated 7-10 Labs Labs: Laboratory Results - last 24 hr 01/15/24 07:13 WBC 7.7 RBC 3.92 L Hgb 12.8 Hct 37.8 MCV 96.4 MCH 32.7 MCHC 33.9 RDW 12.3 Plt Count 202 MPV 9.4 Sodium 135 L Potassium 4.0 Chloride 104 Carbon Dioxide 29 Anion Gap 2 L BUN 9 Creatinine 0.60 L Estim Creat Clear Calc 95 Estimated GFR > 60 Glucose 123 H Calcium 8.6
[2024-01-15] MEDS: FAMOTIDINE 20 MG/2 ML VIAL IV PUSH ×2 (09:16→21:00)
[2024-01-15] MEDS: oxyCODONE/ACETAMINOPHEN (*CRX) 5-325 MG TABLET 1 TABLET PO (09:16)
[2024-01-15] MEDS: ENOXAPARIN 40 MG/0.4 ML SYRINGE SUB-Q (09:17)
--- NOTE | 2024-01-15 13:38 | WPDANESPN ---
Anes - Prog Note Post-Op Date/Time: 01/15/24 13:38 Cardiovascular status: normal Respiratory status: other (2 L o2 NC. Chest xray WNL) Airway patency: baseline Mental status: baseline Post-Op hydration status: normal Vital Signs: Last Vital Signs Temp 36.3 C L 01/15/24 12:47 Pulse 97 01/15/24 12:47 Resp 16 01/15/24 12:47 BP 119/73 01/15/24 12:47 Pulse Ox 94 01/15/24 12:47 O2 Del Method Nasal Cannula 01/14/24 19:45 O2 Flow Rate 2 01/14/24 19:45 Pain Score (VAS): 06/10 I/O: Intake & Output 01/14/24 01/15/24 01/15/24 23:59 07:59 15:59 Intake Total 200 1600 962.5 Output Total 1670 Balance 200 -70 962.5 Laboratory Tests 01/15/24 07:13 01/15/24 07:13 01/15/24 07:13 WBC 7.7 RBC 3.92 L Hgb 12.8 Hct 37.8 MCV 96.4 MCH 32.7 MCHC 33.9 RDW 12.3 Plt Count 202 MPV 9.4 Sodium 135 L Potassium 4.0 Chloride 104 Carbon Dioxide 29 Anion Gap 2 L BUN 9 Creatinine 0.60 L Estim Creat Clear Calc 95 Estimated GFR > 60 Glucose 123 H Calcium 8.6 Post-procedural complaints: none Patient Feedback: Patient satisfied with anesthetic care. patient reports pressure in chest that prevents her from deep breathing. chest xray normal. 12 lead normal
[2024-01-16] VITALS (7 sets, daily range): BP systolic 116–131; BP diastolic 69–97; PULSE 85–98; RESP 16–18; TEMP 36.1–36.8; O2SAT 90–95
[2024-01-16] MEDS: oxyCODONE/ACETAMINOPHEN (*CRX) 10-325 MG TABLET 1 TAB PO ×3 (02:50→23:38)
[2024-01-16] MEDS: LACTATED RINGERS 1,000 ML 125 ML IV CONT ×3 (03:44→10:37)
[2024-01-16] MEDS: IBUPROFEN IV 800 MG/200 ML 800 MG/200 ML BAG 250 MG IVPB ×4 (06:08→17:08)
[2024-01-16] MEDS: oxyCODONE/ACETAMINOPHEN (*CRX) 5-325 MG TABLET 1 TABLET PO ×2 (06:15→20:32)
[2024-01-16 06:25] LABS: Hematocrit 35.1 % (37.0-47.0); Hemoglobin 11.6 g/dL (12.0-15.0); Mean Corpuscular Hemoglobin 32.6 pg (26-34); Mean Corpuscular Volume 98.6 fl (80-100); Platelet Count Result 169 k/mm3 (150-375); Red Blood Count 3.56 M/mm3 (4.2-5.4); Red Cell Distribution Width 12.4 % (11.5-14.5); White Blood Count 7.2 K/mm3 (4.5-10.0)
[2024-01-16 06:38] LABS: Anion Gap 0 mmol/L (4-12); Blood Urea Nitrogen 8 mg/dL (7-17); Calcium 8.4 mg/dL (8.4-10.2); Carbon Dioxide 33 mmol/L (22-30); Chloride 103 mmol/L (98-107); Estimated CRCL calculation 95 ml/min; Estimated Glomerular Filt Rate > 60; Glucose 119 mg/dL (65-110); Sodium 136 mmol/L (137-145)
[2024-01-16] MEDS: ENOXAPARIN 40 MG/0.4 ML SYRINGE SUB-Q (09:06)
[2024-01-16] MEDS: FAMOTIDINE 20 MG/2 ML VIAL IV PUSH ×2 (09:06→20:29)
--- NOTE | 2024-01-16 18:48 | P.PNGS_ITS ---
Progress Note: A&P Assessment and Plan (1) Recurrent incisional hernia with incarceration: Code(s): K43.0 - Incisional hernia with obstruction, without gangrene Status: Chronic Assessment and Plan: Still having some sternal chest pain making it painful when she takes a deep breath. I have encouraged her to ask for pain medication more frequently and even to ask directly for IV morphine sulfate if the pain is severe. She is down to 1 L oxygen per nasal cannula this evening. She has been tolerating liquids quite well. Labs look good. Improving slowly. Subjective Subjective Date/Time Seen: 01/16/24 18:48 Patient reports: still having pain (In the lower chest, making difficult to do take a breath), tolerating liquids well, no flatus, no bowel movement and afebrile Interval history: Patient has not been very assertive in asking for pain medication. Review of Systems Review of Systems: All systems reviewed & are unremarkable except as noted in HPI and below (HPI) Exam Const: General: cooperative, comfortable, no acute distress and tired appearin g Orientation/consciousness: patient oriented x3 Other: Patient lying on her right side as chest discomfort is improved in this posi tion. Had been sleeping. Resp: Effort & Inspection: normal respiratory effort, able to speak in complete sentences, no audible wheezes, not labored and not tachypneic Auscultation: clear to auscultation bilaterally Cardio: Rate: regular rate Rhythm: regular rhythm GI: Inspection: non-distended and incision (Dressing dry and intact, dark old blood in JACKIE drain) GI Palp: Yes Soft to palpation and Yes Tenderness to palpation present (GI) (As expected) Neuro: General: patient oriented x3 and no focal motor deficits Extrem: General: no calf tenderness and no edema Psych: Affect: normal affect Insight: Good insight present (Psych) Judgement: Good judgement present (Psych) Objective Data Vital Signs Vital Signs: Vital Signs - 24 hr 01/15/24 20:00 01/15/24 22:42 01/16/24 06:00 Temperature 36.4 C 36.1 C L Pulse Rate 85 85 Respiratory Rate 16 16 Blood Pressure 113/70 116/69 Pulse Oximetry 97 94 93 Oxygen Delivery Nasal Cannula Oxygen Flow Rate 2 Fraction of Inspired Oxygen 01/16/24 08:55 01/16/24 08:00 01/16/24 14:01 Temperature Pulse Rate Respiratory Rate 16 Blood Pressure Pulse Oximetry 93 95 90 Oxygen Delivery Non-Rebreather Mask Non-Rebreather Mask Room Air Oxygen Flow Rate 2 2 Fraction of Inspired Oxygen 28 01/16/24 14:01 01/16/24 14:01 Temperature 36.8 C Pulse Rate 98 Respiratory Rate 18 Blood Pressure 125/73 Pulse Oximetry 94 92 Oxygen Delivery Nasal Cannula Oxygen Flow Rate 1 Fraction of Inspired Oxygen Intake/Output Intake/Output: Intake & Output 01/13/24 01/14/24 01/15/24 01/16/24 23:59 23:59 23:59 23:59 Intake Total 400 4442.5 2510.4 Output Total 270 1720 80 Balance 130 2722.5 2430.4 Meds/Results Medications: Active Medications Generic Name Dose Route Start Last Admin Trade Name Freq PRN Reason Stop Dose Admin Acetaminophen 500 mg 01/14/24 15:02 Acetaminophen 500 Mg Tablet PO Q6H PRN Pain Rated 1-3 Enoxaparin Sodium 40 mg 01/15/24 09:00 01/16/24 09:06 Enoxaparin 40 Mg/0.4 Ml Syringe SUB-Q 40 mg DAILY ESTIVEN Administration Famotidine 20 mg 01/14/24 21:00 01/16/24 09:06 Famotidine 20 Mg/2 Ml Vial IV PUSH 20 mg Q12HR ESTIVEN Administration Lactated Ringer's 1,000 mls @ 125 mls/hr 01/14/24 15:02 01/16/24 10:37 Lr - Lactated Ringers Iv IV CONT 125 mls/hr .Q8H ESTIVEN Administration Ibuprofen 800 mg in 200 mls @ 400 mls/hr 01/14/24 18:00 01/16/24 17:08 Caldolor 800 Mg/200 Ml IVPB 250 mls/hr Q6H ESTIVEN Administration Morphine Sulfate 2 mg 01/14/24 15:02 Morphine Sulfate (*Crx) 2 Mg/Ml Inj IV PUSH Q2H PRN Breakthrough Pain Rated 4-6 or NPO Morphine Sulfate 4 mg 01/14/24 15:02 Morphine Sulfate (*Crx) 4 Mg/Ml Inj IV PUSH Q2H PRN Breakthrough Pain Rated 7-10 or NPO Naloxone HCl 0.1 mg 01/14/24 15:02 Naloxone Hcl 0.4 Mg/Ml Vial IV PUSH Q2M PRN Opiate Reversal Ondansetron HCl 4 mg 01/14/24 15:02 Ondansetron Inj 4 Mg/2 Ml Vial IV PUSH Q4H PRN Nausea And Vomiting Oxycodone/Acetaminophen 1 tablet 01/14/24 15:02 01/16/24 06:15 Oxycodone/Acetaminophen (*Crx) 5-325 Mg Tablet PO 1 tablet Q4H PRN Administration Pain Rated 4-6 Oxycodone/Acetaminophen 1 tab 01/14/24 15:02 01/16/24 17:13 Oxycodone/Acetaminophen (*Crx) 10-325 Mg Tablet PO 1 tab Q6H PRN Administration Pain Rated 7-10 Radiology Results: ITS Impressions Chest X-Ray 01/15/24 09:58 IMPRESSION: 1. Mild atelectasis in the lower lung zones with worsened elevation of right hemidiaphragm. Labs Labs: Laboratory Results - last 24 hr 01/16/24 06:07 WBC 7.2 RBC 3.56 L Hgb 11.6 L Hct 35.1 L MCV 98.6 MCH 32.6 MCHC 33.0 RDW 12.4 Plt Count 169 MPV 9.0 Sodium 136 L Potassium 4.0 Chloride 103 Carbon Dioxide 33 H Anion Gap 0 L BUN 8 Creatinine 0.60 L Estim Creat Clear Calc 95 Estimated GFR > 60 Glucose 119 H Calcium 8.4
[2024-01-16] MEDS: IBUPROFEN IV 800 MG/200 ML 800 MG/200 ML BAG 200 MG IVPB (23:42)
[2024-01-17] VITALS (7 sets, daily range): BP systolic 112–136; BP diastolic 76–88; PULSE 75–100; RESP 13–20; TEMP 36.2–36.9; O2SAT 90–100
[2024-01-17] MEDS: oxyCODONE/ACETAMINOPHEN (*CRX) 5-325 MG TABLET 1 TABLET PO ×3 (02:00→17:49)
[2024-01-17] MEDS: oxyCODONE/ACETAMINOPHEN (*CRX) 10-325 MG TABLET 1 TAB PO ×3 (05:02→19:13)
[2024-01-17] MEDS: IBUPROFEN IV 800 MG/200 ML 800 MG/200 ML BAG 200 MG IVPB ×2 (05:28→12:08)
[2024-01-17 06:15] LABS: Hematocrit 34.1 % (37.0-47.0); Hemoglobin 11.1 g/dL (12.0-15.0); Mean Corpuscular HGB Conc 32.6 g/dl (32-36); Mean Corpuscular Hemoglobin 32.3 pg (26-34); Mean Corpuscular Volume 99.1 fl (80-100); Mean Platelet Volume 9.2 fl (7.4-10.4); Platelet Count Result 170 k/mm3 (150-375); Red Blood Count 3.44 M/mm3 (4.2-5.4); Red Cell Distribution Width 12.4 % (11.5-14.5); White Blood Count 7.5 K/mm3 (4.5-10.0)
[2024-01-17 06:33] LABS: Anion Gap 6 mmol/L (4-12); Blood Urea Nitrogen 8 mg/dL (7-17); Calcium 8.9 mg/dL (8.4-10.2); Carbon Dioxide 30 mmol/L (22-30); Chloride 102 mmol/L (98-107); Estimated CRCL calculation 111 ml/min; Estimated Glomerular Filt Rate > 60; Glucose 96 mg/dL (65-110); Potassium 3.7 mmol/L (3.4-5.0); Sodium 138 mmol/L (137-145)
[2024-01-17] MEDS: ENOXAPARIN 40 MG/0.4 ML SYRINGE SUB-Q (09:57)
[2024-01-17] MEDS: FAMOTIDINE 20 MG/2 ML VIAL IV PUSH (09:57)
--- NOTE | 2024-01-17 13:14 | P.PNGS_ITS ---
Progress Note: A&P Assessment and Plan (1) Recurrent incisional hernia with incarceration: Code(s): K43.0 - Incisional hernia with obstruction, without gangrene Status: Chronic Assessment and Plan: Epigastric and substernal chest pain improving. Patient has been getting up and going to the bathroom, voiding okay with folic catheter removed. Labs look good. She has been stable on 1 L oxygen per nasal cannula with sats in the 90s throughout. Continues to improve. Recheck labs and exam again tomorrow. Leave JACKIE drain for now. Subjective Subjective Date/Time Seen: 01/17/24 13:14 Post Op day: 3 Patient reports: pain is less, tolerating liquids well, voiding w/o difficulty, no bowel movement, shortness of breath (Improved, patient now on 1 L oxygen per nasal cannula) and afebrile Review of Systems Review of Systems: All systems reviewed & are unremarkable except as noted in HPI and below (HPI) Exam Const: General: comfortable and no acute distress Orientation/consciousness: patient oriented x3 Resp: Effort & Inspection: normal respiratory effort, able to speak in complete sentences, no cough, no grunting, no pursed lip breathing and not tachypneic Auscultation: clear to auscultation bilaterally Cardio: Rate: regular rate Rhythm: regular rhythm GI: Inspection: non-distended and incision (Dry and healing very well. Old blood in JACKIE drain) GI Palp: Yes Soft to palpation, Yes Tenderness to palpati on present (GI), No Guarding due to palpation present (GI) and No Rebound tenderness present Neuro: General: patient oriented x3 and no focal motor deficits Extrem: General: no calf tenderness and no edema Psych: Affect: normal affect Insight: Good insight present (Psych) Judgement: Good judgement present (Psych) Objective Data Vital Signs Vital Signs: Vital Signs - 24 hr 01/16/24 14:01 01/16/24 14:01 01/16/24 14:01 Temperature 36.8 C Pulse Rate 98 Respiratory Rate 18 Blood Pressure 125/73 Pulse Oximetry 90 94 92 Oxygen Delivery Room Air Nasal Cannula Oxygen Flow Rate 1 Fraction of Inspired Oxygen 01/16/24 19:42 01/16/24 20:00 01/16/24 23:24 Temperature 36.8 C 36.5 C Pulse Rate 87 85 Respiratory Rate 16 16 Blood Pressure 126/97 H 131/84 Pulse Oximetry 93 93 91 Oxygen Delivery Nasal Cannula Oxygen Flow Rate 1 Fraction of Inspired Oxygen 01/17/24 04:09 01/17/24 08:00 01/17/24 10:30 Temperature 36.9 C 36.7 C Pulse Rate 100 86 Respiratory Rate 20 20 Blood Pressure 132/76 112/85 Pulse Oximetry 94 100 93 Oxygen Delivery Nasal Cannula Oxygen Flow Rate 1 Fraction of Inspired Oxygen 24 Intake/Output Intake/Output: Intake & Output 01/14/24 01/15/24 01/16/24 01/17/24 23:59 23:59 23:59 23:59 Intake Total 400 4442.5 3710.4 950 Output Total 270 1720 80 Balance 130 2722.5 3630.4 950 Meds/Results Medications: Active Medications Generic Name Dose Route Start Last Admin Trade Name Freq PRN Reason Stop Dose Admin Acetaminophen 500 mg 01/14/24 15:02 Acetaminophen 500 Mg Tablet PO Q6H PRN Pain Rated 1-3 Enoxaparin Sodium 40 mg 01/15/24 09:00 01/17/24 09:57 Enoxaparin 40 Mg/0.4 Ml Syringe SUB-Q 40 mg DAILY ESTIVEN Administration Famotidine 20 mg 01/17/24 21:00 Famotidine 20 Mg Tablet PO Q12HR ESTIVEN Lactated Ringer's 1,000 mls @ 80 mls/hr 01/14/24 15:02 01/17/24 02:05 Lr - Lactated Ringers Iv IV CONT Not Given .[id number] ESTIVEN Ibuprofen 800 mg in 200 mls @ 400 mls/hr 01/17/24 13:02 Caldolor 800 Mg/200 Ml IVPB Q6H PRN Pain Rated 1-3 Morphine Sulfate 2 mg 01/14/24 15:02 Morphine Sulfate (*Crx) 2 Mg/Ml Inj IV PUSH Q2H PRN Breakthrough Pain Rated 4-6 or NPO Morphine Sulfate 4 mg 01/14/24 15:02 Morphine Sulfate (*Crx) 4 Mg/Ml Inj IV PUSH Q2H PRN Breakthrough Pain Rated 7-10 or NPO Naloxone HCl 0.1 mg 01/14/24 15:02 Naloxone Hcl 0.4 Mg/Ml Vial IV PUSH Q2M PRN Opiate Reversal Ondansetron HCl 4 mg 01/14/24 15:02 Ondansetron Inj 4 Mg/2 Ml Vial IV PUSH Q4H PRN Nausea And Vomiting Oxycodone/Acetaminophen 1 tablet 01/14/24 15:02 01/17/24 10:00 Oxycodone/Acetaminophen (*Crx) 5-325 Mg Tablet PO 1 tablet Q4H PRN Administration Pain Rated 4-6 Oxycodone/Acetaminophen 1 tab 01/14/24 15:02 01/17/24 12:27 Oxycodone/Acetaminophen (*Crx) 10-325 Mg Tablet PO 1 tab Q6H PRN Administration Pain Rated 7-10 Radiology Results: ITS Impressions Chest X-Ray 01/15/24 09:58 IMPRESSION: 1. Mild atelectasis in the lower lung zones with worsened elevation of right h emidiaphragm. Labs Labs: Laboratory Results - last 24 hr 01/17/24 06:02 WBC 7.5 RBC 3.44 L Hgb 11.1 L Hct 34.1 L MCV 99.1 MCH 32.3 MCHC 32.6 RDW 12.4 Plt Count 170 MPV 9.2 Sodium 138 Potassium 3.7 Chloride 102 Carbon Dioxide 30 Anion Gap 6 BUN 8 Creatinine 0.50 L Estim Creat Clear Calc 111 Estimated GFR > 60 Glucose 96 Calcium 8.9
[2024-01-17] MEDS: POTASSIUM CHLORIDE 20 MEQ ER TABLET PO (13:42)
[2024-01-17] MEDS: LACTATED RINGERS 1,000 ML 80 ML IV CONT (19:12)
[2024-01-17] MEDS: FAMOTIDINE 20 MG TABLET PO (19:13)
[2024-01-18] VITALS (8 sets, daily range): BP systolic 103–137; BP diastolic 55–84; PULSE 68–95; RESP 13–18; TEMP 36.2–36.8; O2SAT 88–100
[2024-01-18] MEDS: oxyCODONE/ACETAMINOPHEN (*CRX) 5-325 MG TABLET 1 TABLET PO ×3 (00:17→22:38)
[2024-01-18] MEDS: oxyCODONE/ACETAMINOPHEN (*CRX) 10-325 MG TABLET 1 TAB PO ×3 (02:48→18:41)
[2024-01-18 06:05] LABS: Hematocrit 34.1 % (37.0-47.0); Hemoglobin 11.5 g/dL (12.0-15.0); Mean Corpuscular HGB Conc 33.7 g/dl (32-36); Mean Corpuscular Volume 97.7 fl (80-100); Mean Platelet Volume 9.2 fl (7.4-10.4); Platelet Count Result 212 k/mm3 (150-375); Red Blood Count 3.49 M/mm3 (4.2-5.4); Red Cell Distribution Width 12.5 % (11.5-14.5); White Blood Count 6.7 K/mm3 (4.5-10.0)
[2024-01-18 06:08] LABS: Anion Gap 6 mmol/L (4-12); Blood Urea Nitrogen 7 mg/dL (7-17); Calcium 8.7 mg/dL (8.4-10.2); Carbon Dioxide 31 mmol/L (22-30); Chloride 103 mmol/L (98-107); Estimated CRCL calculation 111 ml/min; Estimated Glomerular Filt Rate > 60; Glucose 94 mg/dL (65-110); Potassium 3.7 mmol/L (3.4-5.0); Sodium 140 mmol/L (137-145)
[2024-01-18] MEDS: POTASSIUM CHLORIDE 20 MEQ ER TABLET PO (09:11)
[2024-01-18] MEDS: FAMOTIDINE 20 MG TABLET PO ×2 (09:11→21:03)
[2024-01-18] MEDS: ENOXAPARIN 40 MG/0.4 ML SYRINGE SUB-Q (09:11)
[2024-01-18] MEDS: IBUPROFEN IV 800 MG/200 ML 800 MG/200 ML BAG 400 MG IVPB (09:12)
--- NOTE | 2024-01-18 14:15 | PM.PNGS ---
Progress Note: A&P Assessment and Plan (1) Recurrent incisional hernia with incarceration: Code(s): K43.0 - Incisional hernia with obstruction, without gangrene Status: Chronic Assessment and Plan: epigastric pain moving. Patient has still not had a bowel movement postoperatively. Will order two dulcolax tabs and if no results, fleets enema. Still on 1 L nasal cannula oxygen. Requiring quite a bit of analgesics mostly oral but also still some IV analgesics. Continue hospital stay until more comfortable. Subjective Subjective Date/Time Seen: 01/18/24 14:15 Post Op day: 4 Patient reports: pain is less ( Improving), tolerating liquids well, no bowel movement and afebrile Review of Systems Review of Systems: All systems reviewed & are unremarkable except as noted in HPI and below ( HPI) Exam Const: General: cooperative, comfortable and awake Resp: Effort & Inspection: no cough, not labored, no stridor, not tachypneic and other ( breathing more easily but still requiring 10 mg oxycodone) Auscultation: clear to auscultation bilaterally GI: Inspection: non-distended, incision ( dressing dry and intact) and other ( JACKIE drain output serosanguineous now, volume decreasing) GI Palp: Yes Soft to palpation, Yes Tenderness to palpation present (GI) ( minimal tenderness except epigastric which is tender), No Hernia present and No Palpable mass present Auscultation: normal bowel sounds Objective Data Vital Signs Vital Signs: Vital Signs - 24 hr 01/17/24 16:00 01/17/24 20:00 01/17/24 20:00 Temperature 36.9 C 36.2 C L Pulse Rate 84 75 Respiratory Rate 16 13 Blood Pressure 136/88 133/81 Pulse Oximetry 96 93 90 Oxygen Delivery Room Air Oxygen Flow Rate 01/18/24 00:00 01/18/24 04:00 01/18/24 08:00 Temperature 36.3 C L 36.2 C L 36.8 C Pulse Rate 79 95 88 Respiratory Rate 13 13 18 Blood Pressure 105/76 124/84 127/74 Pulse Oximetry 88 L 96 95 Oxygen Delivery Oxygen Flow Rate 01/18/24 09:10 01/18/24 12:00 Temperature 36.7 C Pulse Rate 68 Respiratory Rate 18 Blood Pressure 126/81 Pulse Oximetry 96 100 Oxygen Delivery Nasal Cannula Oxygen Flow Rate 1 Intake/Output Intake/Output: Intake & Output 01/15/24 01/16/24 01/17/24 01/18/24 23:59 23:59 23:59 23:59 Intake Total 4442.5 3710.4 3150 1290 Output Total 1720 80 30 32 Balance 2722.5 3630.4 3120 1258 Meds/Results Medications: Active Medications Generic Name Dose Route Start Last Admin Trade Name Freq PRN Reason Stop Dose Admin Acetaminophen 500 mg 01/14/24 15:02 Acetaminophen 500 Mg Tablet PO Q6H PRN Pain Rated 1-3 Enoxaparin Sodium 40 mg 01/15/24 09:00 01/18/24 09:11 Enoxaparin 40 Mg/0.4 Ml Syringe SUB-Q 40 mg DAILY ESTIVEN Administration Famotidine 20 mg 01/17/24 21:00 01/18/24 09:11 Famotidine 20 Mg Tablet PO 20 mg Q12HR ESTIVEN Administration Ibuprofen 800 mg in 200 mls @ 400 mls/hr 01/17/24 13:02 01/18/24 09:42 Caldolor 800 Mg/200 Ml IVPB Infused Q6H PRN Infusion Pain Rated 1-3 Morphine Sulfate 2 mg 01/14/24 15:02 Morphine Sulfate (*Crx) 2 Mg/Ml Inj IV PUSH Q2H PRN Breakthrough Pain Rated 4-6 or NPO Morphine Sulfate 4 mg 01/14/24 15:02 Morphine Sulfate (*Crx) 4 Mg/Ml Inj IV PUSH Q2H PRN Breakthrough Pain Rated 7-10 or NPO Naloxone HCl 0.1 mg 01/14/24 15:02 Naloxone Hcl 0.4 Mg/Ml Vial IV PUSH Q2M PRN Opiate Reversal Ondansetron HCl 4 mg 01/14/24 15:02 Ondansetron Inj 4 Mg/2 Ml Vial IV PUSH Q4H PRN Nausea And Vomiting Oxycodone/Acetaminophen 1 tablet 01/14/24 15:02 01/18/24 13:58 Oxycodone/Acetaminophen (*Crx) 5-325 Mg Tablet PO 1 tablet Q4H PRN Administration Pain Rated 4-6 Oxycodone/Acetaminophen 1 tab 01/14/24 15:02 01/18/24 09:11 Oxycodone/Acetaminophen (*Crx) 10-325 Mg Tablet PO 1 tab Q6H PRN Administration Pain Rated 7-10 Potassium Chloride 20 meq 01/18/24 08:00 01/18/24 09:11 Potassium Chloride 20 Meq Er Tablet PO 20 meq DAILY@0800 ESTIVEN Administration Radiology Results: ITS Impressions Chest X-Ray 01/15/24 09:58 IMPRESSION: 1. Mild atelectasis in the lower lung zones with worsened elevation of right hemidiaphragm. Labs Labs: Laboratory Results - last 24 hr 01/18/24 05:48 WBC 6.7 RBC 3.49 L Hgb 11.5 L Hct 34.1 L MCV 97.7 MCH 33.0 MCHC 33.7 RDW 12.5 Plt Count 212 MPV 9.2 Sodium 140 Potassium 3.7 Chloride 103 Carbon Dioxide 31 H Anion Gap 6 BUN 7 Creatinine 0.50 L Estim Creat Clear Calc 111 Estimated GFR > 60 Glucose 94 Calcium 8.7
[2024-01-19 03:25] VITALS: O2SAT 95
[2024-01-19] MEDS: oxyCODONE/ACETAMINOPHEN (*CRX) 10-325 MG TABLET 1 TAB PO ×3 (05:07→22:09)
[2024-01-19 05:53] VITALS: BP 125/63; PULSE 82; RESP 16; TEMP 36.7; O2SAT 93
[2024-01-19 07:35] LABS: Hematocrit 37.5 % (37.0-47.0); Hemoglobin 12.4 g/dL (12.0-15.0); Mean Corpuscular HGB Conc 33.1 g/dl (32-36); Mean Corpuscular Hemoglobin 32.3 pg (26-34); Mean Corpuscular Volume 97.7 fl (80-100); Mean Platelet Volume 9.2 fl (7.4-10.4); Platelet Count Result 238 k/mm3 (150-375); Red Blood Count 3.84 M/mm3 (4.2-5.4); Red Cell Distribution Width 12.4 % (11.5-14.5); White Blood Count 6.3 K/mm3 (4.5-10.0)
[2024-01-19 07:51] LABS: Anion Gap 9 mmol/L (4-12); Blood Urea Nitrogen 7 mg/dL (7-17); Calcium 9.1 mg/dL (8.4-10.2); Carbon Dioxide 29 mmol/L (22-30); Chloride 98 mmol/L (98-107); Estimated CRCL calculation 95 ml/min; Estimated Glomerular Filt Rate > 60; Glucose 227 mg/dL (65-110); Potassium 3.2 mmol/L (3.4-5.0); Sodium 136 mmol/L (137-145)
[2024-01-19] MEDS: POTASSIUM CHLORIDE 20 MEQ ER TABLET PO (08:17)
[2024-01-19] MEDS: ENOXAPARIN 40 MG/0.4 ML SYRINGE SUB-Q (08:18)
[2024-01-19] MEDS: FAMOTIDINE 20 MG TABLET PO ×2 (08:18→20:38)
--- NOTE | 2024-01-19 13:45 | PM.PNGS ---
Progress Note: A&P Assessment and Plan (1) Recurrent incisional hernia with incarceration: Code(s): K43.0 - Incisional hernia with obstruction, without gangrene Status: Chronic Assessment and Plan: Epigastric pain continues to improve and is controlled on oral analgesics. She is no longer requiring oxygen. She is tolerating a regular diet, but still no bowel movement. Will give a fleets enema today. If no BM, then we will also give a soap suds enema. Possibly discharge home tomorrow if she continues to improve. Plan I have discussed the patient's case and plan of care with Dr. Matthews. Subjective Subjective Date/Time Seen: 01/19/24 13:45 Post Op day: 5 Patient reports: no new complaints, feels better, pain is less, tolerating a regular diet, flatus, no bowel movement and afebrile Interval history: Feels like she is improving daily. She is still having low substernal and epigastric pain, but feels this has been improving. She feels this is currently controlled with the oxycodone. She has been weaned off of oxygen this morning. Per nursing, her oxygen saturation was 100% on room air. She has been getting up and ambulating well. She is tolerating a regular diet. She reports passing lots of flatus, but still no BM since surgery. Exam Const: General: comfortable and no acute distress Orientation/consciousness: patient oriented x3 GI: Inspection: non-distended and incision (Dry and vickey intact, no erythema) GI Palp: Yes Soft to palpation, Yes Tenderness to palpation present (GI), No Guarding due to palpation present (GI), No Hernia present and Yes Other GI palpation findings present (Scant amount of old blood in LLQ JACKIE drain) Auscultation: normal bowel sounds Extrem: General: no pedal edema and no calf tenderness Objective Data Vital Signs Vital Signs: Vital Signs - 24 hr 01/18/24 16:00 01/18/24 20:00 01/18/24 22:00 Temperature 98.1 F 97.6 F Pulse Rate 80 87 Respiratory Rate 18 18 Blood Pressure 103/55 L 137/84 Pulse Oximetry 100 96 95 Oxygen Delivery Nasal Cannula Oxygen Flow Rate 1 Fraction of Inspired Oxygen 01/19/24 03:25 01/19/24 05:53 Temperature 98.1 F Pulse Rate 82 Respiratory Rate 16 Blood Pressure 125/63 Pulse Oximetry 95 93 Oxygen Delivery Nasal Cannula Oxygen Flow Rate 1 Fraction of Inspired Oxygen 24 Intake/Output Intake/Output: Intake & Output 01/16/24 01/17/24 01/18/24 01/19/24 23:59 23:59 23:59 23:59 Intake Total 3710.4 3150 2630 1270 Output Total 80 30 32 Balance 3630.4 3120 2598 1270 Meds/Results Medications: Active Medications Generic Name Dose Route Start Last Admin Trade Name Freq PRN Reason Stop Dose Admin Acetaminophen 500 mg 01/14/24 15:02 Acetaminophen 500 Mg Tablet PO Q6H PRN Pain Rated 1-3 Enoxaparin Sodium 40 mg 01/15/24 09:00 01/19/24 08:18 Enoxaparin 40 Mg/0.4 Ml Syringe SUB-Q 40 mg DAILY ESTIVEN Administration Famotidine 20 mg 01/17/24 21:00 01/19/24 08:18 Famotidine 20 Mg Tablet PO 20 mg Q12HR ESTIVEN Administration Ibuprofen 800 mg in 200 mls @ 400 mls/hr 01/17/24 13:02 01/18/24 09:42 Caldolor 800 Mg/200 Ml IVPB Infused Q6H PRN Infusion Pain Rated 1-3 Morphine Sulfate 2 mg 01/14/24 15:02 Morphine Sulfate (*Crx) 2 Mg/Ml Inj IV PUSH Q2H PRN Breakthrough Pain Rated 4-6 or NPO Morphine Sulfate 4 mg 01/14/24 15:02 Morphine Sulfate (*Crx) 4 Mg/Ml Inj IV PUSH Q2H PRN Breakthrough Pain Rated 7-10 or NPO Naloxone HCl 0.1 mg 01/14/24 15:02 Naloxone Hcl 0.4 Mg/Ml Vial IV PUSH Q2M PRN Opiate Reversal Ondansetron HCl 4 mg 01/14/24 15:02 Ondansetron Inj 4 Mg/2 Ml Vial IV PUSH Q4H PRN Nausea And Vomiting Oxycodone/Acetaminophen 1 tablet 01/14/24 15:02 01/18/24 22:38 Oxycodone/Acetaminophen (*Crx) 5-325 Mg Tablet PO 1 tablet Q4H PRN Administration Pain Rated 4-6 Oxycodone/Acetaminophen 1 tab 01/14/24 15:02 01/19/24 11:31 Oxycodone/Acetaminophen (*Crx) 10-325 Mg Tablet PO 1 tab Q6H PRN Administration Pain Rated 7-10 Potassium Chloride 20 meq 01/18/24 08:00 01/19/24 08:17 Potassium Chloride 20 Meq Er Tablet PO 20 meq DAILY@0800 ESTIVEN Administration Radiology Results: ITS Impressions Chest X-Ray 01/15/24 09:58 IMPRESSION: 1. Mild atelectasis in the lower lung zones with worsened elevation of right hemidiaphragm. Labs Labs: Laboratory Results - last 24 hr 01/19/24 07:10 WBC 6.3 RBC 3.84 L Hgb 12.4 Hct 37.5 MCV 97.7 MCH 32.3 MCHC 33.1 RDW 12.4 Plt Count 238 MPV 9.2 Sodium 136 L Potassium 3.2 L Chloride 98 Carbon Dioxide 29 Anion Gap 9 BUN 7 Creatinine 0.60 L Estim Creat Clear Calc 95 Estimated GFR > 60 Glucose 227 H Calcium 9.1
[2024-01-19 14:00] VITALS: BP 132/96; PULSE 100; RESP 20; TEMP 36.2; O2SAT 96
[2024-01-19] MEDS: oxyCODONE/ACETAMINOPHEN (*CRX) 5-325 MG TABLET 1 TABLET PO (18:03)
[2024-01-19 20:00] VITALS: PULSE 100; RESP 20; O2SAT 96
[2024-01-19] MEDS: POTASSIUM CHLORIDE 20 MEQ ER TABLET 40 MEQ PO (20:38)
[2024-01-19 21:08] VITALS: BP 147/83; PULSE 81; RESP 16; TEMP 36.5; O2SAT 95
[2024-01-20 05:30] VITALS: BP 134/81; PULSE 82; RESP 16; TEMP 36.2; O2SAT 97
[2024-01-20] MEDS: oxyCODONE/ACETAMINOPHEN (*CRX) 5-325 MG TABLET 1 TABLET PO (07:30)
[2024-01-20] MEDS: POTASSIUM CHLORIDE 20 MEQ ER TABLET PO ×2 (07:30→07:58)
[2024-01-20] MEDS: FAMOTIDINE 20 MG TABLET PO (07:59)
--- NOTE | 2024-01-20 10:13 | PCNWS ---
Weekly nutritional screen. Patient is tolerating current regular diet with adequate intake now at 75-100%. No weight loss reported. No nutritional recommendations at this time. Possible discharge tomorrow.
[2024-01-20] MEDS: oxyCODONE/ACETAMINOPHEN (*CRX) 10-325 MG TABLET 1 TAB PO (10:18)
[2024-01-20 14:00] VITALS: BP 139/76; PULSE 80; RESP 16; TEMP 35.3; O2SAT 98
--- NOTE | 2024-01-20 15:21 | P.DS_ITS ---
DS: Admitting Diagnosis Discharge Date 01/20/2024 Admitting Diagnosis Recurrent incisional hernia with incarceration Former smoker Gastric bypass history History of abdominoplasty DS: Discharge Diagnosis Discharge Diagnosis (1) Recurrent incisional hernia with incarceration: Code(s): K43.0 - Incisional hernia with obstruction, without gangrene Status: Chronic (2) Former smoker: Code(s): Z87.891 - Personal history of nicotine dependence Status: Chronic (3) Hx of abdominoplasty: Code(s): Z98.890 - Other specified postprocedural states Status: Chronic (4) History of gastric bypass: Code(s): Z98.84 - Bariatric surgery status Status: Chronic DS: Summary Hospital Course Reason for hospitalization: Patient is a 59-year-old woman who had noticed right lower quadrant pain as well as multiple bulges in the midline of her abdomen. She has a history of open gastric bypass. She also has a history of abdominoplasty. She noticed these bulges starting about 2 years ago. Sometimes they are painful and will not reduce. In the office, there were areas that were not reducible but not tender. She underwent a CT scan of the abdomen and pelvis that shows what appears to be a midline incisional hernia repair with an umbilical recurrence as well as supraumbilical incisional hernias. One of the upper abdominal hernias does contain a bit of transverse colon. After discussion, she is was scheduled for surgery and brought in for open repair multiple incisional recurrent incarcerated hernias with mesh, posterior component separation, by Dr. Matthews on 01/14/24. Hospital Course: Patient underwent repair incarcerated recurrent incisional hernias with 23 cm abdominal defect using mesh; bilateral transversus abdominis myofascial flap a dvancement-6 cm on the left, 4 cm on the right by Dr. Matthews on 01/14/24. She was admitted following surgery for postoperative recovery and monitoring. Postop day 1, she was having some shortness of breath and was requiring 2 L of oxygen. EKG was normal. Chest x-ray showed mild atelectasis in the lower lung zones with worsened elevation of right hemidiaphragm. She was hemodynamically stable. She began slowly improving and her diet was slowly advanced. Her oxygen was tapered down and eventually weaned off oxygen by postop day 5 She was transitioned to oral pain medications. Her Gore catheter was removed by postop day 3 and she was voiding without difficulty. Her postoperative pain seemed to be in the epigastric area and was well controlled with oral pain medications marin or to discharge. She was tolerating activity and increasing ambulation daily. Labs were monitored postoperatively. She did have mild hypokalemia which was treated with potassium supplementation. She had some constipation following surgery and was treated with a Fleet's enema. Bowel function returned by postop day 5. Her JACKIE drain was monitored following surgery with scant serosanguineous drainage and eventual removal prior to discharge. Her incision was healing well and vickey were removed prior to discharge. She was eventually stable for discharge by postop day [address] Matthews. Status at Discharge Functional status at discharge: independent ambulation Overall status at discharge: patient is progressing back to baseline Time Spent with Patient Time attestation: Total time spent providing and/or coordinating discharge services: Time spent: Less than 30 minutes Exam Const: General: comfortable and awake Resp: Effort & Inspection: normal respiratory effort Auscultation: clear to auscultation bilaterally Cardio: Rate: regular rate Rhythm: regular rhythm GI: Inspection: non-distended and incision (healing well with steri strips intact, no erythema or drainage) GI Palp: Yes Soft to palpation, No Tenderness to palpation present (GI) and No Guarding due to palpation present (GI) Auscultation: normal bowel sounds DS: Data Procedures/Treatments: Procedures Operation Date: 01/14/24 09:00 Actual Procedure Side Surgeon p Incarcerated Recurrent Incisional Hernia Repair with Mesh, Posterior Component Separation Not Applicable Jason Matthews MD Imaging Radiologist's impression: ITS Impressions Chest X-Ray 01/15/24 09:58 IMPRESSION: 1. Mild atelectasis in the lower lung zones with worsened elevation of right hemidiaphragm. Discharge Plan Discharge Attending physician on discharge: Jason Matthews Consulting providers: Jim Valdes; Irasema Dougherty; Ap Johnson V.; Jason Cuellar Discharging Clinician: Shira Weston Anticipated Discharge Date/Time: 01/20/24 15:09 Patient Disposition: Home, Self-Care Activity: may shower, no driving and other - see discharge instructions Diet: regular Wound Care Instructions: incision open to air Discharge Instructions: Surgery Discharge Instructions: * No heavy lifting more than 10 pounds. * Avoid any fast or jerky movements * May shower, do not submerge in water for 2 weeks. * Walk at least 3-4 times daily * Do not drive for 1 week or while on narcotic pain medication. * Follow-up with Dr. Matthews in our office as scheduled on 01/26/24 at 8:15 am. ([phone]) Call sooner with surgical questions/concerns. * You were also prescribed a potassium supplement to take for the next week. Take them as prescribed and finish these tablets. Take them with food. * Okay to take Miralax or dulcolax over the counter for constipation as needed. Patient Instructions: Antibiotic Form Stand Alone Forms: General Discharge Information Follow-up/Referrals: Jason Matthews MD [Physician] - Keep Reg. Scheduled Appt. Discharge Medications: New oxycodone-acetaminophen 5-325 mg Tablet 1 tablet PO Q4-6H PRN (Reason: Pain Rated 4-6) Qty: 20 0RF potassium chloride 20 mEq tablet extended release 20 meq PO DAILY 7 Days Qty: 7 0RF Continued Adults Multivitamin 18 mg iron-400 mcg-25 mcg Tablet 1 tablet PO DAILY Date of admission: 01/14/24 15:02 Primary Care Provider: SarahLauryn Admitting Provider: Jason Matthews Attending physician on admission: Shira Weston Condition: Improved
[2024-01-20] MEDS: POTASSIUM CHLORIDE 20 MEQ ER TABLET 40 MEQ PO (16:16)
== END 2024-01-20 17:45 | disposition home or self-care (01) | DRG 355 ==
LOC: ANH3MEDSUR 15:14
PROVIDERS: Admitting Provider Surgery; PCP Physician Assistant; Visit Provider Nurse Practitioner Family
PROC: 0WQF0ZZ Repair Abdominal Wall, Open Approach (ICD-10-PCS; principal; 2024-01-14 09:00)
DX: K43.0 Incisional hernia with obstruction, without gangrene (principal); D64.9 Anemia, unspecified; K59.09 Other constipation; E87.6 Hypokalemia; Z87.891 Personal history of nicotine dependence; Z98.84 Bariatric surgery status; Z98.890 Other specified postprocedural states; Z90.49 Acquired absence of other specified parts of digestive tract
CPT/HCPCS: 36415; 71046; 80048; 85027; 93005; A9270; C1781; J0690; J1100; J1171; J1650; J1741; J1885; J2003; J2250; J2405; J2704; J3010; J7120

== ENCOUNTER 2024-03-05 08:16 | Outpatient (CLI) | payer OTHER, SELFPAY ==
--- NOTE | ~2024-03-05 | XR_ITS ---
EXAMINATION: XR ribs RT 2V w CXR 2V DATE: 03/05/2024 08:50 INDICATION: Pleurodynia TECHNIQUE: PA and lateral views of the chest and 3 views of the right ribs were obtained. COMPARISON: Chest radiograph dated 01/15/2024 FINDINGS: Chronic elevation the right hemidiaphragm. Unchanged linear discoid atelectasis/scarring in the right midlung zone. No other airspace opacities, pulmonary edema, pleural effusion or pneumothorax. Heart size is normal. Possible minimally displaced fracture of the anterior right fifth and sixth ribs. IMPRESSION: 1. Possible fractures of the anterior right fifth and sixth ribs. Correlate for point tenderness at t his location. 2. Chronic elevation the right hemidiaphragm with linear discoid atelectasis/scarring in the right mi dlung zone. Reviewed, dictated and finalized at location B. [employer] IMPRESSION: 1. Possible fractures of the anterior right fifth and sixth ribs. Correlate for point tenderness at this location. 2. Chronic elevation the right hemidiaphragm with linear discoid atelectasis/sc arring in the right midlung zone.
== END 2024-03-05 08:17 | disposition home or self-care (01) ==
LOC: MICIMG 08:18
PROVIDERS: PCP Physician Assistant; Visit Provider Physician Assistant
DX: R91.8 Other nonspecific abnormal finding of lung field (principal); R07.81 Pleurodynia
CPT/HCPCS: 71046; 71100

== ENCOUNTER 2024-12-15 07:51 | Outpatient (CLI) | payer OTHER, SELFPAY ==
--- NOTE | ~2024-12-15 | MM_ITS ---
EXAMINATION: MM screening zuleima BI w yarely HISTORY: Screening TECHNIQUE: Craniocaudal and mediolateral oblique 3-D tomosynthesis images were obtained and synthetic 2-D images were generated. CAD analysis was submitted and interpreted. COMPARISON: 05/06/2019 BREAST PARENCHYMAL COMPOSITION: Not Dense: The breasts are almost entirely fatty. FINDINGS: There is no evidence of suspicious mass, calcification, or architectural distortion to suggest malignancy. There has been no suspicious interval change. IMPRESSION: 1. No mammographic evidence of malignancy. Recommend routine screening mammography in one year. BI-RADS Category 2: Benign finding(s) Reviewed, dictated and finalized at location Q. IMPRESSION: 1. No mammographic evidence of malignancy. Recommend routine screening mammogra phy in one year. BI-RADS Category 2: Benign finding(s)
== END 2024-12-15 07:52 | disposition home or self-care (01) ==
LOC: MICIMG 07:51
PROVIDERS: PCP Physician Assistant; Visit Provider Physician Assistant
DX: Z12.31 Encounter for screening mammogram for malignant neoplasm of breast (principal)
CPT/HCPCS: 77063; 77067